=== PATIENT | male | born 1970 | race Caucasian/White ===

== ENCOUNTER 2017-06-13 15:00 | Emergency (ER) | payer OTHER ==
[~2017-06-13] VITALS: Ht 188 cm; Wt 117.8 kg
[~2017-06-13 15:00] MED LIST: ACTOS15 MG PO; AMBIEN5 MG PO; AMOX TR-K CLV1 EAC4 PO; COLCHICINE,COL0.6 MG PO; CYMBALTA60 MG PO; DELTASONE1 MG PO; DURAGESIC50 MCG TD; FENTANYL1 EAC4 TD; FENTANYL1 EAC5 TD; GABAPENTIN100 MG PO; GABAPENTIN300 MG PO; GLUCOPHAGE1000 MG PO; INDOCIN25 MG PO; INVOKANA100 MG PO; LANTUS 10100 UNITS/ SC; LANTUS 10100 UNITS/ SQ; LIPITOR80 MG PO; LISINOPRIL10 MG PO; LISINOPRIL20 MG PO; LOVAZA1 GM PO; METFORMIN HCL1000 MG PO; METOPROLOL SUCC25 MG PO; NAPROSYN250 MG PO; NAPROSYN500 MG PO; OXYCODONE-APAP1 EACH; PERCOCET 5/31 TABLET PO; PERCOCET 7.51 TABLET PO; PRAVASTATIN SOD20 MG PO; PRAVASTATIN SOD40 MG PO; SIMVASTATIN80 M1 PO; ULORIC40 MG PO; VENTOLIN HFA18 GM IH; VICTOZA 2-0.6 MG/0.1 SC; ZESTRIL,PRINIV2.5 MG PO; ZITHROMAX Z-PA250 MG PO
[2017-06-13] MEDS ORDERED: MOTRIN800 MG PO (16:25)
[2017-06-13] MEDS ORDERED: FLEXERIL10 MG PO (16:25)
[2017-06-13] MEDS ORDERED: PERCOCET 5/31 TABLET PO (16:49)
[2017-06-13 17:10] VITALS: BP 135/92
== END 2017-06-13 17:03 | disposition home or self-care (01) ==
LOC: EME 15:00
DX: S16.1XXA Strain of muscle, fascia and tendon at neck level, initial encounter (principal); S39.012A Strain of muscle, fascia and tendon of lower back, initial encounter; V49.40XA Driver injured in collision with unspecified motor vehicles in traffic accident, initial encounter; Y92.410 Unspecified street and highway as the place of occurrence of the external cause; Z88.8 Allergy status to other drugs, medicaments and biological substances
CPT/HCPCS: 72040; 72100; 99281; 99284